=== PATIENT | male | born 1945 | race Caucasian/White ===

== ENCOUNTER 2024-10-18 12:16 | Emergency (ER) | payer MEDICARE, SELFPAY ==
--- OUTSIDE RECORDS SUMMARY | 2024-10-18 12:18 | XMS_ITS | Clinical Summary ---
Author Organization [facility] Address [address] [place] [address] Care Team Providers Care Grinding Room Inspector Name Role Phone Unavailable Primary Care Provider Unavailabl e Source Comments [facility],non-owned Affiliates and Associated Physician Practices is amultiple site organization consisting of ambulatory clinics and hospital sitesin [place], [place], [place] and [place]. This disclosure is being madepursuant to the Care Everywhere program and may not contain all information available regarding this patient. Last updated 17.[facility] Social History Tobacco Use Types Packs/Day Years Used Date Smoking Tobacco: Never Assessed Sex and Gender Information Value Date Recorded Sex Assigned at Not on file Legal Sex Male 5:37 PM CDT Gender Identity Not on file Sexual Orientation Not on file Last Filed Vital Signs Vital Sign Reading Time Taken Comments Blood Pressure 118/80 04/27/2021 2:28 PM [employer]Y WORKER Pulse 76 04/27/2021 2:28 PM DAIRY WORKER Temperature 36.6 C (97.9 F) 04/27/2021 2:28 PM DAIRY WORKER Respiratory Rate 18 04/27/2021 2:28 PM DAIRY WORKER Oxygen Saturation - - Inhaled Oxygen Concentration - - Weight 171 kg (377 lb 0.1 oz) 04/27/2021 2:28 PM DAIRY WORKER Height 182.9 cm (6') 04/27/2021 2:28 PM DAIRY WORKER Body Mass Index 51.13 04/27/2021 2:28 PM DAIRY WORKER Plan of Treatment Health Maintenance Due Date Last Done Comments DTAP/TDAP/TD VACCINES (1 - Tdap) 1964 PNEUMOCOCCAL VACCINE 50+ (1 of 1 - PCV) 1995 ZOSTER VACCINE (1 of 2) 1995 Respiratory Syncytial Virus (RSV) Vaccine Pt: or over 60 yrs (1 - 1-dose 75+ series) 2020 COVID-19 VACCINE (2023-2 5 season) 2023 DEPRESSION SCREENING 03/11/2024 INFLUENZA VACCINE (#1) 2024 HEPATITIS B VACCINE Aged Out No longe r eligible based on patient's age to complete this topic HIB VACCINE Aged Out No longer eligi ble based on patient's age to complete this topic HPV VACCINE Aged Out No longer eligi ble based on patient's age to complete this topic MENINGOCOCCAL (Group B) VACC INE SHARED DECISION-MAKING Aged Out No longer eligibl e based on patient's age to complete this topic MENINGOCOCCAL GROUPS A/C/Y/W VACCINE Aged Out No longer eligible b ased on patient's age to complete this topic
--- OUTSIDE RECORDS SUMMARY | 2024-10-18 12:18 | XMS_ITS | Clinical Summary ---
Author Organization [facility] Address [address] [place] [address] Care Team Providers Care Steam Bone Press Tender Name Role Phone Simone Davila MD Primary Care Provider [phone] Allergies Active Allergy Reactions Criticality Noted Date Comments Shellfish Containing Products 08/09/2006 throat swelling Triazolam Other - Describe In Comment Field 08/09/2006 bad dreams Vivid dreams and sleep walking Unlisted Allergen (Include Detail In Comments) Anaphylaxis High 09/05/2017 Medications niacin 500 mg tablet Take 1 tablet by mouth once daily. 0 10/02/19 17 Active ascorbic acid, vitamin C, (VITAMIN C) 500 mg tablet Take 1 tablet by mouth once daily. 0 10/02/19 17 Active vitamin a-vitamin c-vitamin e-minerals (VISION FORMULA) tablet Take 1 tablet by mouth once every other day. 0 10/02/19 17 Active Cholecalciferol, Vitamin D3, 5,000 unit tab Take 5,000 Units by mouth once daily. Active multivitamins-minerals- lutein (CENTRUM SILVER) 0.4-300-250 mg-mcg-mcg tab Take 1 tablet by mouth once daily. Active cyanocobalamin (VITAMIN B-12) 1,000 mcg tablet Take 1 tablet by mouth once daily. 0 02/10/20 19 Active sildenafil citrate (Viagra) 100 mg tabletIndications:Impot ence of organic origin Take 1 Tablet (100 mg) by mouth once daily if needed for Erectile Dysfunction. Take 30min to 4 hours before sexual activity. Max 100mg/24hr. 36 Tablet 4 01/04/20 22 Active medication order composerIndications:Tommy ateral lower extremity edema Ortho bed wedge for leg elevation 1 Each 04/30/19 23 Active CPAPIndications:Obstruc tive sleep apnea RESMED CPAP (E0601) machine for home use at pressure: 9-12cmw, Choice of mask (A7030 or A7034) w/full face cushion (A7031) x1/mo, nasal cushion (A7032) x2/mo, or nasal pillows (A7033) x 2/mo; Length of Need: 99 months; Frequency of use: Daily 1 Each 04/06/19 25 Active zolpidem 5 mg tabletIndications:Other insomnia TAKE 1 TO 1 AND 1/2 TABLETS AT BEDTIME NEEDED FOR SLEEP 110 Tablet 06/11/19 25 Active warfarin 5 mg tabletIndications:Parox ysmal atrial fibrillation (HC),Anticoagulation monitoring, INR range 2-3 Take by mouth 2.5 mg (5 mg x 0.5) every Sat, Sat; 5 mg (5 mg x 1) all other days in the evening OR as directed 06/13/19 25 Active sotaloL 80 mg tabletIndications:Parox ysmal atrial fibrillation (HC) Take 1 Tablet (80 mg) by mouth every 12 hours. 180 Tablet 3 08/01/19 25 Active losartan 25 mg tabletIndications:Essen tial hypertension Take 1 Tablet (25 mg) by mouth once daily. 90 Tablet 3 08/01/19 25 Active atorvastatin 40 mg tabletIndications:Pure hypercholesterolemia Take 1 Tablet (40 mg) by mouth at bedtime. 90 Tablet 3 08/01/19 25 Active ammonium lactate 12 % lotionIndications:Dry skin : Apply topically to affected area(s) two times daily. Take as needed. 225 g 5 09/17/19 25 Active Active Problems Problem Noted Date Diagnosed Date Leukocytosis 01/15/2024 Overview (01/15/2024): Images from the original note were not included. This was diagnosed in 01/01 with a white count of 14. The following is Dr. Herbert's recommendation. Vanessa Herbert MD [place], Simone Martinez MD; Carley Knight RN CBC looks pretty good. I don't think I need to see him right now. (Sounds like he wouldn't want to come anyway). Just let me know what it shows in 6 months and we can regroup Morbid obesity with BMI of 45.0-49.9, adult 01/09 Peripheral edema 01/20/2021 Peripheral sensory neuropathy 01/20/2021 Essential hypertension 01/20/2021 Pacemaker 08/19/2017 Overview (08/19/2017): Dual Chamber Pacemaker installed in 06/2017 for symptomatic Bradycardia and slow atrial fibrillation. 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 Junior of Neurology in 12/2015. Chronic insomnia 05/24/2016 Elevated PSA 05/09/2015 CHIVO 2006 AHI-37 05/07/2013 Overview (07/23/2014): He does have sleep apnea and his CPAP benefits him. He feels refreshed after a night of sleep. Simone Davila MD signed electronically .................... 07/23/2014 ACP (advance care planning) 03/27/2012 Overview (03/27/2012): Patient has identified Health Care Agent(s): Yes Add Health Care Agents: Yes Health Care Agent(s): Primary Health Care Agent: Elliot Gardner Relationship: Friend/Roommate Secondary Health Care Agent: Relationship: Phone: Conservator: Relationship: Phone: Guardian: Relationship: Phone: Patient has Advance Care Plan Documents (Health Care Directive, POLST): No, Health Care Packet given to patient and declined. 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 0 03/26/2012 Insomnia, unspecified 08/09/2006 ANXIOUS DEPRESSION 08/09/2006 Pure hypercholesterolemia 08/09/2006 ERECTILE DYSFUNCTION 08/09/2006 Resolved Problems Problem Noted Date Diagnosed Date Resolved Date Atrial fibrillation, unspecified type 07/01/2017 07/11/2017 Hyperlipidemia LDL goal < 70 04/02/2012 06/26/2017 Unspecified sleep apnea 10/03/200605/09 Overview (10/03/2006): 08/26/2006 AHI-72 CPAP used Encounters Date Type Department Care Team Description 10/14/2024 Travel 10/05/[address] [address] Simone Davila MD RETURNING CALL (Lab) 09/28/[address] [address] Simone Davila MD Refill Request (Zolpidem) 09/09/2024 2:00 PM CDT Orders Only [address] [address] [place], [place] [facility] 09/09/2024 Anticoagulation (warfarin) [facility] [address] [place] [address] Nurse, Christopher Anticoag Anticoagulation 09/09/2024 Travel 09/09/2024 Telephone [facility] [address] [place] [address] Simone Davila MD Prior Authorization (zolpidem 5 mg tablet APPROVED September 09, 2024 to March 10, 2025) 09/07/2024 Travel 08/11/[address] [address] Simone Davila MD Follow Up 08/11/[address] [address] Simone Davila MD Questions (CPAP) 07/31/2024 2:45 PM CDT Telemedicine [facility] [address] [place] [address] Simone Davila MD Telehealth (Going over lab results / would like to discuss whether he is dehydrated or not); Fatigue (Fatigue has gotten worse the past week or 2. He states that he doesn't do a whole lot. ) 07/30/2024 Telephone [facility] [place] [address] Dylon Rosado MD Medication Management (CPAP) 07/29/2024 Anticoagulation (warfarin) [address] [address] 1, [place] [facility] Anticoagulation 07/28/2024 2:45 PM CDT Orders Only [address] [place] [address] Lab[place] [facility] 07/28/2024 Nurse/Clinic Staff Only [address] [address] Simone Davila MD Blood Pressure (No symptoms, just wants it checked); Immunization/Injectio n (COVID-19 vaccine) 07/28/2024 Travel 07/26/2024 Orders Only [facility] [place] [address] Simone Davila MD <No scans attached> 07/26/2024 Travel 07/24/2024 Orders Only [address] [address] Simone Davila MD Lab (Lab orders need reordering) from Last 3 Months Immunizations Immunization Administration Dates Next Due AMB INFLUENZA IIV3 (AGE 65+ YRS) PF (Flu Clinic Only) 12/11/2017 AMB Influenza, IIV3 (Age >=3 years)(Flu Clinic Only) 01/01/2011 COVID-19 VACCINE SPIKEVAX (M ODERNA 50MCG/0.5ML) 12YO+ PFS 07/28/2024,12/11/2023,06/12/2023 COVID-19 vaccine (TutorDudesBio NTech 30mcg/0.3mL) 12YO+ BIVALENT PF, MDV 01/08/2022 COVID-19 vaccine (Pfizer-Bio NTech 30mcg/0.3mL) 12YO+ GÓMEZ-SUCROSE PF, MDV 07/10/2021 COVID-19 vaccine (Pfizer-Bio NTech 30mcg/0.3mL) PF, MDV 12/21/2020,05/31/2020,05/10/2020 Influenza A (H1N1), Inactiva ford (Age >=3 Years) 01/10/2009 Influenza, High-dose Inactivated 019,03/01/2016,03/23/2015,12/13 Influenza, IIV3 (Age 6-35 mos) 11/12/2019,2010,12/12/2009 Influenza, IIV3 (Age >=3 years) 12/19/2011 Influenza, Inactivated AIIV4 (Age 65+ Years) Preserv Free 11/23/2022,01/08/2022,11/24/2020 Influenza, Inactivated IIV3 (Age 65+ Years) Preserv Free 12/11/2023,01/02/2017 Pneumococcal Poly,23-Valent (Pneumovax) 10/25/2010 Pneumococcal conj 13-Valent (Prevnar 13) 03/23/2015 RSV, Recombinant ADJ Reconst ituted (Arexvy 120MCG/0.5mL) 12/18/2022 Td (Age >=7 Years) 01/12/2000 Tdap 10/25/2010 Zoster (Shingrix-RZV, recombinant) 10/25/2018, Family History Medical History Relation Name Comments Other Father COPD at 91 of combo of COPD and old age Heart failure Maternal Aunt of this at 95 Diabetes Mother Heart Disease Mother at 36 of Heart Stoppage after a bout of Asiatic flu Relation Name Status Comments Father (Age 91) Maternal Aunt Mother (Age 35) Social History Tobacco Use Types Packs/Day Years Used Date Smoking Tobacco: Never Smokeless Tobacco: Never Tobacco Cessation:Counseling Given: Yes Alcohol Use Standard Drinks/Week Comments Not Currently 0 (1 standard drink = 0.6 oz pur e alcohol) 1 less than monthly PHQ-2 Answer Date Recorded PHQ-2 TOTAL SCORE 2 12/11/2023 Social Connections Answer Date Recorded Do you often feel lonely or isolated from those around you? 0 12/09/2023 Alcohol Use Answer Date Recorded How often do you have a drink containing alcohol ? 1 08/11/2021 How many drinks containing a lcohol do you have on a typical day when you are drinking? 0 08/11/2021 How often do you have five or more drinks on one occasion? 0 08/11/2021 Financial Resource Strain Answer Date R ecorded Difficulty of Paying Living Expenses 3 12/09/2023 Difficulty of Paying Living Expenses Not on file 12/09/2023 Food Insecurity Answer Date Recorded Do you worry your food will run out before you are able to buy more? 1 12/09/2023 Transportation Needs Answer Date Record ed Does lack of transportation keep you from medica l appointments? 1 12/09/2023 Does lack of transportation keep you from work, meetings or getting things that you need? 1 12/09/2023 Housing Stability Answer Date Recorded What is your housing situation today? 1 12/09/2023 Utilities Answer Date Recorded Do you have trouble paying f or utilities (for example, heat, electricity, water, phone)? 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 Oxygen Saturation 95% 07/28/2024 3:00 PM CDT Inhaled Oxygen Concentration - - Weight 152 kg (335 lb) 07/28/2024 2:54 PM CDT Height 182.9 cm (6') 02/07/2018 1:13 PM SUBSTATION MAINTENANCE TECHNICIAN Body Mass Index 45.43 02/07/2018 1:13 PM SUBSTATION MAINTENANCE TECHNICIAN Plan of Treatment Upcoming Encounters Date Type Department Care Team (Late st Contact Info) Description 10/19/2024 3:15 PM CDT Orders Only [facility] [address] [place] [address] [place] 12/16/2024 Cardiac Device Check [facility] [phone] 01/06/2025 3:00 PM CDT Orders Only [facility] [address] [place] [address] [place] 01/13/2025 2:25 PM SUBSTATION MAINTENANCE TECHNICIAN Office Visit [facility] [address] [place] [address] Simone Davila MD [address] [place] [address] Health Maintenance Due Date Last Done Comments BMI (ht and wt on same day) for age 18+ 02/07/2019 02/07/2018, 08/19/2017, 06/25/2017, Additional history exists Tetanus booster 10/25/2020 10/25/2010, 10/09 (Completed outside of [facility]), 01/12/2000 Influenza Vaccine (#1) 2024 , 11/23/2022, 01/08/2022, Additional history exists Depression screening for age 12+ 12/11/2024 12/12/2023, 12/11/2023, 11/23/2022, Additional history exists Medicare Wellness for age 65+ 12/11/2024 12/11/2023, 11/23/2022, 08/11/2021, Additional history exists COVID-19 vaccine series ( season) 2025 07/28/2024, 12/11/2023, 12/11/2023, Additional history exists Pneumococcal series for age 50+ Completed 03/23/2015, 10/25/2010 Zoster (shingles) series for age 50+ Completed 10/25/2018, 07/04/2018 Hepatitis C screening for age 18-79 Completed 08/18/2021, 08/18/2021 RSV vaccine for adults or Completed 12/18/2022 Hepatitis B series for 19+ Aged Out N o longer eligible based on patient's age to complete this topic Procedures Procedure Name Priority Date/Time Associated Diagnosis Comments INR,POCT Routine 09/09/2024 1:47 PM CDT Paroxysmal atrial fibrillation (HC) Anticoagulation monitoring, INR range 2-3 PROTIME-INR Routine 07/28/2024 2:42 PM CDT Paroxysmal atrial fibrillation (HC) Anticoagulation monitoring, INR range 2-3 PERIPHERAL BLD MORPHOLOGY Routine 07/28/2024 2:40 PM CDT Leukocytosis, unspecified type Anemia, unspecified type CBC WITH AUTO DIFFERENTIAL STAT 07/28/2024 2:40 PM CDT Leukocytosis, unspecified type Anemia, unspecified type RETICULOCYTES STAT 07/28/2024 2:40 PM CDT Anemia, unspecified type CBC WITH AUTO DIFFERENTIAL STAT 07/28/2024 2:40 PM CDT Leukocytosis, unspecified type Anemia, unspecified type ANTI HCV Routine 08/18/2021 2:18 PM CDT Need for hepatitis C screening test from Last 3 Months or Most Recently Relevant to Health Maintenance Results * (ABNORMAL) INR - POCT [21526.2] - Standing Order (09/09/2024 1:47 PM CDT) INR 1.8(H) ratio [facility] Comment: INRs >2.9 may be falsely elevated in patients receiving either unfractionated Heparin or Low Molecular Weight Heparin. Follow up testing in a hospital laboratory may be helpful if clinically indicated. INR results of > or = 5.0 should be verified using the standard venipuncture procedure. Reference Range 0.9-1.1 Moderate-intensity Warfarin Therapy 2.0-3.0 Higher-intensity Warfarin Therapy 3.0-4.0 PROTHROMBIN TIMEP 21.7(H) 10.5 - 13.1 sec [facility] Comment: Point of care fingerstick Prothrombin Time/INR results may vary from venous Prothrombin Time/INR methodologies. Any results exhibiting inconsistency with the patient's clinical status should be repeated using a venous Prothrombin Time/INR method. Blood BLOOD SPECIMEN / Unknown 09/09/2024 1:47 PM CDT 09/09/2024 1:48 PM CDT Simone Davila MD LABORATORY Final Resu lt Performing Organization Address [facility]/ZIP Co de Phone Number [facility] [address] [place] [address], [place] [phone] [facility] [address] [place] [address] * (ABNORMAL) PROTIME-INR [[id number]] - Standing Order (07/28/2024 2:42 PM CDT) INR 2.4(H) <1.3 07/28/2024 10:32 PM CDT [facility] PROTIME 28.2(H) 10.6 - 12.4 sec 07/28/2024 10:32 PM CDT [facility] Blood BLOOD SPECIMEN / Unknown [facility] / Unknown 07/28/2024 2:42 PM CDT 07/28/2024 2:42 PM CDT Narrative [facility] - 07/28/2024 10:32 PM CDT Therapeutic Range 2.0-3.0 for most anticoagulated patients 2.5-3.5 or 4.0 for high risk patients The INR is only used for patients on stable oral anticoagulant therapy. It makes no significant contribution to the diagnosis or treatment of patients whose Protime is prolonged for other reasons. INR results are increased when heparin levels exceed 1.0 U/mL, which corresponds to an aPTT >125 seconds if the patient is on UFH. Simone Davila MD HEMATOLOGY Final Resu lt Performing Organization Address [facility]/ZIP Co de Phone Number [facility] [address] [place] [address], [place] * (ABNORMAL) CBC WITH AUTO DIFFERENTIAL (07/28/2024 2:40 PM CDT) WHITE BLOOD COUNT 9.7 4.5 - 11.0 thou/cu mm 07/28/2024 10:30 PM CDT [facility] RED BLOOD COUNT 4.41 4.30 - 5.90 mil/cu mm 07/28/2024 10:30 PM CDT [facility] HEMOGLOBIN 13.2(L) 13.5 - 17.5 g/dL 07/28/2024 10:30 PM CDT [facility] HEMATOCRIT 40.4 37.0 - 53.0 % 07/28/2024 10:30 PM CDT [facility] MCV 92 80 - 100 fL 07/28/2024 10:30 PM CDT [facility] MCH 29.9 26.0 - 34.0 pg 07/28/2024 10:30 PM CDT [facility] MCHC 32.7 32.0 - 36.0 g/dL 07/28/2024 10:30 PM CDT [facility] RDW 14.0 11.5 - 15.5 % 07/28/2024 10:30 PM CDT [facility] PLATELET COUNT 257 140 - 440 thou/cu mm 07/28/2024 10:30 PM CDT [facility] MPV 9.9 6.5 - 11.0 fL 07/28/2024 10:30 PM CDT [facility] NRBC 0.0 % 07/28/2024 10:30 PM CDT [facility] ABS NRBC 0.0 thou /cu mm 07/28/2024 10:30 PM CDT [facility] % NEUT 46.1 % 07/28/2024 10:30 PM CDT [facility] % LYMPH 41.1 % 07/28/2024 10:30 PM CDT [facility] % MONO 7.9 % 07/28/2024 10:30 PM CDT [facility] % EOS 3.5 % 07/28/2024 10:30 PM CDT [facility] % BASO 1.0 % 07/28/2024 10:30 PM CDT [facility] % IMMATURE GRAN (METAS,MYELOS,WV OS) 0.4 % 07/28/2024 10:30 PM CDT [facility] ABSOLUTE NEUTROPHILS 4.5 1.7 - 7.0 thou/cu mm 07/28/2024 10:30 PM CDT [facility] ABSOLUTE LYMPHOCYTES 4.0(H) 0.9 - 2.9 thou/cu mm 07/28/2024 10:30 PM CDT [facility] ABSOLUTE MONOCYTES 0.8 <0.9 thou/cu mm 07/28/2024 10:30 PM CDT [facility] ABSOLUTE EOSINOPHILS 0.3 <0.5 thou/cu mm 07/28/2024 10:30 PM CDT [facility] ABSOLUTE BASOPHILS 0.1 <0.3 thou/cu mm 07/28/2024 10:30 PM CDT [facility] ABSOLUTE IMMATURE GRANULOCYTES(MET ,MYELOS,PROS) 0.0 <0.3 thou/cu mm 07/28/2024 10:30 PM CDT [facility] Blood BLOOD SPECIMEN / Unknown [facility] / Unknown 07/28/2024 2:40 PM CDT 07/28/2024 2:41 PM CDT us Simone Davila MD HEMATOLOGY Final Resu lt [facility] [address] [place] [address], * PERIPHERAL BLD MORPHOLOGY [[id number]] (07/28/2024 2:40 PM CDT) Case Report Special Hematology Report Case: [id number] Authorizing Provider: Simone Davila MD Collected: 07/28/2024 1440 Ordering Location: [facility] Received: 07/28/2024 1441 Clinic Pathologist: Carlito Mcknight MD Specimen: Blood 07/30/2024 11:40 AM CDT [facility] ENTRAL LABORATORY Final Diagnosis PERIPHERAL BLOOD: 1. 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 Absolute monotypic T lymphocytes = 400/cumm 2. Mild normocytic anemia 3. See comment 07/30/2024 11:40 AM CDT [facility] at 1140 CDT Comment Since the last described peripheral blood morphology December 2023 ([id number]), the absolute monoclonal T-cell count has decreased from 700/cumm to 400/cumm. The specific etiology of the anemia is not apparent from the blood smear findings. Normocytic anemia may be associated with a variety of conditions, including anemia of chronic disease, hypothyroidism, active bleeding, early iron deficiency, or medication effect. The morphologic features are not suggestive of hemolysis. No definite myelodysplastic features are seen. This case was also reviewed by Mabel Gallardo MT, MS ([facility]). 07/30/2024 11:40 AM CDT [facility] Clinical Information The patient is a 79-year-old male. Pertinent clinical information: Leukocytosis and anemia. Per EPIC: Additional history includes left and glottic MCA CVA, paroxysmal A-fib, pacemaker, hypertension, peripheral sensory neuropathy. Peripheral blood morphology December 2023 ([id number]) showed a cytotoxic (CD3+/CD8+/CD57+) T-cell clone of uncertain significance (700/cumm). Flow cytometry was negative for a monoclonal B-cell lymphocyte population. 07/30/2024 11:40 AM CDT [facility]AT[facility]-C ENTRAL LABORATORY CBC and Differential HEMATOLOGY PARAMETERS Tested at: [facility] RESULTS EXPECTED VALUES WBC: 9.7 4.5-64u0292/cumm RBC: 4.41 4.30-5.90 mil/cumm HGB: 13.2 13.5-17.5 gm/di DECREASED HCT: 40.4 37-53% MCV: 92.0 80-100 fl NORMOCYTIC MCH: 29.9 26-34 pg MCHC: 32.7 32-36 gm/dl NORMOCHROMIC RDW: 14.0 11.5-15.5% PLT: 257 140-931n8194/uL MPV: 9.9 6.5-11 fl Retic: 1.9 0.5-1.5% ELEVATED Differential Absolute (%) Expected (%) (x10*9/L) (x10*9/L) Neutrophils: 4.5 (46.4) 1.7-7.0 (42-72%) Lymphocytes: 4.0 (41.2) 0.9-2.9 (20-44%) ELEVATED Monocytes: 0.8 (8.2) <0.9 (0-11%) Eosinophils: 0.3 (3.1) <0.5 (0-2%) Basophils: 0.1 (1) <0.3 (<3.0%) 07/30/2024 11:40 AM T [facility] Microscopic Description The final diagnosis is based on microscopic examination of an appropriately stained blood smear. 07/30/2024 11:40 AM [facility] Flow Cytometry Summary T Cell Leukemia/Lymphoma panel: Interpretation: Small CD3+/CD8+/CD57+ monotypic T cell population with similar immunophenotype to previous study ([id number]). Clinical indication for flow cytometry: History of cytotoxic T-cell clone. A monotypic T cell cohort is detected that comprises approximately 3.8% of total viable nucleated events as defined by light scatter criteria. Summary of T cell phenotype Brightly positive markers: CD45/CD2/CD3/CD8/ TCR ALPHA BETA Moderately positive markers: CD5/CD57 Dimly positive markers: CD7/CD56 Trace positive markers: Negative markers: CD19/TCR GAMMA DELTA/TRBC1/CD4/C D16/CD10/HLA-DR Approximate absolute monotypic T lymphocytes = 400/cumm Quality Assessment Monotypic T cell events: 388 Nucleated cells analyzed: [id number] Limit of detection (LOD): 0.5% These results and cytograms have been verified by Dr. Mcknight. This test was developed and its performance characteristics verified by [facility] It has not been cleared or approved by the [place] Food and Drug Administration. This test is used for clinical purposes and should not be regarded as investigational or for research. Analytic Flow Tech: Lucie Alfredo Corral, 07/29/2024 3:08 PM Verifying Flow Tech: Lamont Quevedolli, 07/29/2024 3:25 PM 07/30/2024 11:40 AM CDT [facility] LAB[facility]AT[facility]-C ENTRAL LABORATORY Additional Information Interpreted at [facility], Central Laboratory - [address] [place] [address] [address], [place] [address] 07/30/2024 11:40 AM CDT [facility] LABORAT[facility]-C ENTRAL LABORATORY Blood BLOOD SPECIMEN / Unknown [facility] / Unknown 07/28/2024 2:40 PM CDT 07/28/2024 2:41 PM CDT Comment:CURRENT MEDICATIONSC urrent Outpatient Medications: ammonium lactate 12% topical (LACHYDRIN) 12 % lotion, : Apply topically to affected area(s) two times daily. Take as needed., Disp: 225 g, Rfl: 5 ascorbic acid, vitamin C, (VITAMIN C) 500 mg tablet, Take 1 tablet by mouth once daily., Disp: , Rfl: 0 atorvastatin (LIPITOR) 40 mg tablet, Take 1 Tablet (40 mg) by mouth at bedtime., Disp: 90 Tablet, Rfl: 2 Cholecalciferol, Vitamin D3, 5,000 unit tab, Take 5,000 Units by mouth once daily., Disp: , Rfl: CPAP, RESMED CPAP (E0601) machine for home use at pressure: 9-12cmw, Choice of mask (A7030 or A7034) w/full face cushion (A7031) x1/mo, nasal cushion (A7032) x2/mo, or nasal pillows (A7033) x 2/mo; Length of Need: 99 months; Frequency of use: Daily, Disp: 1 Each, Rfl: 11 cyanocobalamin (VITAMIN B-12) 1,000 mcg tablet, Take 1 tablet by mouth once daily., Disp: , Rfl: 0 fish oil-omega-3 fatty acids (FISH OIL) 1,200-360 mg cap, Take 1 capsule by mouth at bedtime. One capsule is 1200 mg-360 mg , Disp: , Rfl: losartan (COZAAR) 25 mg tablet, Take 1 Tablet (25 mg) by mouth once daily., Disp: 90 Tablet, Rfl: 2 medication order composer, Ortho bed wedge for leg elevation, Disp: 1 Each, Rfl: 0 jfustjwgredzf-xyngzfsz-ecrxxd (CENTRUM SILVER) 0.4-300-250 mg-mcg-mcg tab, Take 1 tablet by mouth once daily., Disp: , Rfl: niacin 500 mg tablet, Take 1 tablet by mouth once daily., Disp: , Rfl: 0 sildenafil citrate (Viagra) 100 mg tablet, Take 1 Tablet (100 mg) by mouth once daily if needed for Erectile Dysfunction. Take 30min to 4 hours before sexual activity. Max 100mg/24hr., Disp: 36 Tablet, Rfl: 4 sotaloL (BETAPACE) 80 mg tablet, Take 1 Tablet (80 mg) by mouth every 12 hours., Disp: 180 Tablet, Rfl: 2 vitamin a-vitamin c-vitamin e-minerals (VISION FORMULA) tablet, Take 1 tablet by mouth once every other day., Disp: , Rfl: 0 warfarin 5 mg tablet, Take by mouth 2.5 mg (5 mg x 0.5) every e, Fri; 5 mg (5 mg x 1) all other days in the evening OR as directed, Disp: , Rfl: zolpidem 5 mg tablet, TAKE 1 TO 1 AND 1/2 TABLETS AT BEDTIME NEEDED FOR SLEEP, Disp: 110 Tablet, Rfl: 0 us Simone Davila MD HEMATOLOGY Final Resu lt [facility] [address] [place] [address], [place] * (ABNORMAL) RETICULOCYTES [74350.0] (07/28/2024 2:40 PM CDT) RETIC% 1.9(H) 0.5 - 1.5 % 07/28/2024 10:30 PM CDT [facility] RETIC (ABSOLUTE) 0.08 0.03 - 0.08 mil/cu mm 07/28/2024 10:30 PM CDT [facility] Blood BLOOD SPECIMEN / Unknown [facility] / Unknown 07/28/2024 2:40 PM CDT 07/28/2024 2:41 PM CDT us Simone Davila MD HEMATOLOGY Final Resu lt [facility] [address] [place] [address], [place] * (ABNORMAL) ANTI HCV (08/18/2021 2:18 PM CDT) HEPATITIS C ANTIBODY Equivocal( A) Non-Reacti ve 08/19/2021 7:34 AM CDT [facility] Comment:Equivocal; Reflexed to HCV RNA Quant (See separate report). Blood BLOOD SPECIMEN / Unknown Venipuncture / Unknown 08/18/2021 2:18 PM CDT 08/18/2021 2:19 PM CDT us Simone Davila MD SEND OUTS Final Resu lt Performing Organization Address City/[facility]/ZIP Co de Phone Number [facility] [address] [place] [address], [place] from Last 3 Months or Most Recently Relevant to Health Maintenance Insurance [facility] MR Advance Directives * Full Code (Latest Code Status on File) Date Activated Date Inactivated Comments 06/26/2017 3:54 AM 06/27/2017 6:33 PM * Full Code Date Activated Date Inactivated Comments 03/26/2012 4:09 PM 03/29/2012 9:41 PM Care Teams [employer] T[employer] Relationship Specialty Start Date End Date Simone Davila MD [address] [place] [address] PCP - General 07/19/06
[2024-10-18 12:27] VITALS: BP 133/83; PULSE 81; RESP 18; TEMP 36.5; O2SAT 95; BMI 46.1
--- NOTE | 2024-10-18 12:37 | ED.MALEGU ---
HPI - Male Genitourinary General Time Seen by Provider: 12:37 Date Seen: 10/18/24 Chief complaint: Urogenital Problems, Male Stated complaint: uti Time Seen by Provider: 10/18/24 12:37 Source: patient, family and RN notes reviewed Mode of arrival: ambulatory Limitations: no limitations History of Present Illness HPI Narrative: Kulwant is a very pleasant 79-year-old gentleman with history of hyperlipidemia who comes to the emergency room for evaluation regarding urinary symptoms. Kulwant notes that for the last 3 weeks he has been experiencing some of the symptoms he read about online. They include discomfort with urination and fatigue. He has not had any new back pain fever or chills. He notes that he had similar symptoms in April of this year and was check for UTI and it was negative. He wants to ?keep it simple and ?today but was encouraged to get this checked out because of the possibility that he UTI could cause other organ damage. Denies vomiting fever chills cough cold or congestion. Related Data Home Medications ?Medication ?Instructions ?Recorded ?Confirmed ammonium lactate 12 % lotion topical 3XD 10/18/24 atorvastatin 40 mg tablet 40 mg PO DAILY 10/18/24 10/18/24 losartan 25 mg tablet 25 mg PO DAILY 10/18/24 10/18/24 sotalol 80 mg tablet 80 mg PO BID 10/18/24 10/18/24 zolpidem 5 mg tablet PO 10/18/24 Allergies Allergy/AdvReac Type Severity Reaction Status Date / Time shellfish derived Allergy Severe Verified 10/18/24 12:33 Review of Systems Status of ROS: Reports: 10 or more systems reviewed and unremarkable except as noted in History and below Const: Reports: fatigue; Denies: fever or chills Eyes: Denies: change in vision ENMT: Denies: nasal congestion Cardio: Denies: chest pain Resp: Denies: cough GI: Denies: abdominal pain, nausea or vomiting Musculo: Reports: back pain (From sitting at a computer, uses Tylenol); Denies: extremity pain Neuro: Denies: headache Endo: Reports: fatigue PFSH PFS Social History Smoking Status: Never smoker How often do you have a drink containing alcohol: never AUDIT-C Alcohol total score: 0 Non-prescribed substance use: denies use service: No Exam Narrative: Exam Narrative: Alert and oriented. Talkative with normal mentation and speech. No acute distress. External ears eyes nose clear. Heart with regular rate and rhythm. Lungs are clear. No CVA tenderness with percussion. Abdomen is soft nontender. Const: Vital Signs, click to edit/add: Vital Signs - 24 hr 10/18/24 12:27 10/18/24 12:49 Temperature 97.7 F Pulse Rate [Right Pulse Oximeter] 81 88 Respiratory Rate 18 18 Blood Pressure [Ri ght Upper Arm] 133/83 137/84 Pulse Oximetry 95 94 Oxygen Delivery Me thod Room Air Room Air Documenting provider has reviewed patient's vital signs: yes Course Course ED Course: Differential diagnosis includes but is not limited to urinary retention, UTI. Will obtain urinalysis and bladder scan at this time. Vital Signs Vital signs: Initial Vital Signs Temperature 97.7 F 10/18/24 12:27 Temperature Source Temporal Artery Scan 10/18/24 12:27 Pulse Rate 81 10/18/24 12:27 Pulse Rhythm Regular 10/18/24 12:27 Pulse Strength 3+ Normal 10/18/24 12:27 Respiratory Rate 18 10/18/24 12:27 Blood Pressure 133/83 10/18/24 12:27 Blood Pressure Mean 99 10/18/24 12:27 Blood Pressure Position Sitting 10/18/24 12:27 Pulse Oximetry 95 10/18/24 12:27 Oxygen Delivery Method Room Air 10/18/24 12:27 Vital Signs Temperature 97.7 F 10/18/24 12:27 Pulse Rate 81 10/18/24 12:27 Respiratory Rate 18 10/18/24 12:27 Blood Pressure 133/83 10/18/24 12:27 Pulse Oximetry 95 10/18/24 12:27 Oxygen Delivery Method Room Air 10/18/24 12:27 Temperature 97.7 F 10/18/24 12:27 Pulse Rate 88 10/18/24 12:49 Respiratory Rate 18 10/18/24 12:49 Blood Pressure 137/84 10/18/24 12:49 Pulse Oximetry 94 10/18/24 12:49 Oxygen Delivery Method Room Air 10/18/24 12:49 MDM - Male Genitourinary MDM Narrative Medical decision making narrative: 1. Urinary retention-mild at approximately 150 mL. At this time do not feel the need to place a Simeon catheter but do highly recommend follow-up with Urology for evaluation of prostate enlargement. 2. Dysuria-this is very mild in urinalysis does not show any evidence of UTI. However, will send for urine culture. Given symptoms ongoing for 3 weeks, lack of fever tachycardia, do not feel the need to treat unless urine culture would come back positive. 3. Fatigue-did offer blood tests but patient declines at this time will follow-up with primary MD. No fever or vital sign abnormality at this time. 4. Disposition-home at this time. Return for inability to urinate, fever, worsening symptoms and as needed. Lab Data Attestation: I reviewed the patient's lab results. Labs: Lab Results 10/18/24 Range/Units 12:57 Urine Color Dark yellow (Yellow) Urine Appearance Clear (Clear) Urine pH 5.5 (5.0-8.5) Ur Specific [place] >= 1.030 (1.000-1.030) Urine Protein Negative (Negative) Urine Glucose (UA) Negative (Negative) Urine Ketones Negative (Negative) Urine Blood Negative (Negative) Urine Nitrite Negative (Negative) Urine Bilirubin Negative (Negative) Urine Urobilinogen 0.2 (0.2-1.0) Ur Leukocyte Esterase Negative (Negative) Urine RBC 0-2 (0-2) Urine WBC 2-5 (0-5) Ur Squamous Epith Cells Few (None-Few) Urine Bacteria Few A (None) Discharge Plan Discharge Clinical Impression: Urinary retention, Dysuria Patient Disposition: Home, Self-Care Condition: Unchanged Additional Instructions: Recommend follow-up with Urology in regards to the mild urinary retention. Return for fever, inability to urinate, worsening symptoms and as needed. Prescriptions: No Action atorvastatin 40 mg tablet 40 mg PO DAILY ammonium lactate 12 % lotion topical 3XD sotalol 80 mg tablet 80 mg PO BID losartan 25 mg tablet 25 mg PO DAILY zolpidem 5 mg tablet PO Follow Up/Referrals: Simone Davila MD [Primary Care Provider, Family Practice] Stand Alone Forms: [employer] Info Instructions
[2024-10-18 12:49] VITALS: BP 137/84; PULSE 88; RESP 18; O2SAT 94
[2024-10-18 13:12] LABS: Appearance Urine Clear (Clear)
[2024-10-18 14:11] VITALS: BP 121/67; PULSE 61; RESP 18; O2SAT 95
== END 2024-10-18 14:13 | disposition home or self-care (01) ==
PROVIDERS: Emergency Provider Family Medicine; PCP Family Medicine
DX: R33.9 Retention of urine, unspecified (principal); R30.0 Dysuria; R53.83 Other fatigue
CPT/HCPCS: 81001; 87086; 99282; 99283; 99284